=== PATIENT | male | born 1960 | race Caucasian/White ===

== ENCOUNTER 2018-07-28 05:31 | Day surgery (SDC) | payer BC ==
[2018-07-27 10:28] VITALS: BMI 38.1
[2018-07-28] VITALS (13 sets, daily range): BP systolic 100–140; BP diastolic 60–85; PULSE 58–65; RESP 13–20; Ht 167.6 cm; Wt 114.1 kg
[~2018-07-28] VITALS: Ht 167.6 cm; Wt 114.1 kg
[2018-07-28] MEDS ORDERED: LACTATED RINGER'S 1,000 ML IV SCH (06:30)
[2018-07-28] MEDS ORDERED: AMLO-147 PO (07:03)
[2018-07-28] MEDS ORDERED: CARV12.579 PO (07:03)
[2018-07-28] MEDS ORDERED: CLON-379 PO (07:03)
[2018-07-28] MEDS ORDERED: HYDR25TA6 PO (07:04)
[2018-07-28] MEDS ORDERED: HYDR-3672 PO (07:04)
--- NOTE | 2018-07-28 07:11 | PREAC ---
Date/Time of Note Date/Time of Note DATE: 07/28/18 TIME: 07:11 Anesthesia Eval and Record Evaluation Time Pre-Procedure Interview DATE: 07/28/18 TIME: 07:11 Age 58 Sex male NPO: 8 hrs Preoperative diagnosis Lateral meniscus tear, left knee Planned procedure Operative arthroscopy, partial medial and lateral meniscectomy, interosseous bioplasty to the lateral femoral condyle and tibial plateau Past Medical History Past Medical History: Includes Cardio: HTN GI: Morbid obesity Surgery & Anesthesia Issues No known issue Meds Anticoagulation: No Beta David within 24 hr: Yes Reported Medications Hydralazine Hcl* (Hydralazine Hcl*) 50 Mg Tab, 50 MG PO TID, #90 TAB 07/28/18 Hydrochlorothiazide* (Hydrochlorothiazide*) 25 Mg Tab, 25 MG PO DAILY, #30 TAB 07/28/18 Carvedilol* (Carvedilol*) 12.5 Mg Tablet, 12.5 MG PO BID, #60 TAB 07/28/18 Amlodipine Besylate* (Amlodipine Besylate*) 10 Mg Tablet, 10 MG PO DAILY, #30 TAB 07/28/18 Clonidine Hcl* (Clonidine Hcl*) 0.1 Mg Tab, 0.1 MG PO TID PRN for ELEVATED BLOOD PRESSURE, TAB 07/28/18 Current Medications Lactated Ringer's 1,000 ml @ 0 mls/hr Q0M IV Last administered on 07/28/18at 06:43; Admin Dose 25 MLS/HR; Start 07/28/18 at 06:30 Meds reviewed: Yes Allergies Coded Allergies: No Known Allergy (Unverified , 07/28/18) Allergies Reviewed: Yes Labs/Studies Labs Reviewed: Reviewed by anesthesiologist test: N/A Pre-procedure Exam Last vitals Vital Signs Date Temp Pulse Resp B/P (MAP) Pulse Ox O2 O2 Flow FiO2 Time Delivery Rate 07/28/18 97.5 62 18 140/85 94 Room Air 06:31 (103) Airway: Adequate mouth opening Mallampati: Mallampati II Teeth: Normal Lung: Normal Heart: Normal ASA Physical Status ASA physical status: 3 Emergency: None Planned Anesthetic General/MAC: LMA Planned Pain Management Parenteral pain med Pre-operative Attestations Prior to commencing anesthesia and surgery, the patient was re-evaluated, there was verification of: *The patient's identity *The results of appropriate recent lab work and preoperative vital signs *The above evaluation not changing prior to induction *Anesthetic plan, risk benefits, alternative and complications discussed with patient/family; questions answered; patient/family understands, accepts and wishes to proceed. MINE MEADOWS MD Jul 28, 2018 07:11
[2018-07-28] MEDS ORDERED: MEPERIDINE 100 MG INJ ONE (07:31)
[2018-07-28] MEDS ORDERED: PROPOFOL 20 ML ONE (07:31)
[2018-07-28] MEDS ORDERED: CEFAZOLIN 1 GM INJ ONE ×2 (07:31→10:03)
[2018-07-28] MEDS ORDERED: LIDOCAINE 2% (SDV) 5 ML INJ ONE (07:31)
--- NOTE | 2018-07-28 07:45 | HPN ---
Date/Time of Note Date/Time of Note DATE: 07/28/18 TIME: 07:45 Interval H&P Admission Note Pt. seen H&P reviewed: No system changes EVAN RAY MD Jul 28, 2018 07:45
[2018-07-28] MEDS ORDERED: HEPARIN 1000 UNITS/ML 10 ML INJ ONE (07:59)
[2018-07-28] MEDS ORDERED: ROPIVACAINE 0.5 % 30 ML VIAL ONE (07:59)
[2018-07-28] MEDS ORDERED: IOHEXOL 300MG/ML 30 ML BTL ONE (09:03)
[2018-07-28] MEDS ORDERED: ROCURONIUM 50 MG INJ ONE (10:03)
[2018-07-28] MEDS ORDERED: EPHEDrine 25 MG/5 ML SYG ONE (10:04)
[2018-07-28] MEDS ORDERED: ATROPINE 1 MG/10 ML SYRINGE ONE (10:04)
[2018-07-28] MEDS ORDERED: GLYCOPYRROLATE 0.4 MG INJ ONE (10:05)
[2018-07-28] MEDS ORDERED: NEOSTIGMINE 3 MG/3 ML SYRINGE ONE (10:05)
[2018-07-28] MEDS ORDERED: ONDANSETRON 4 MG INJ IV PRN (11:00)
[2018-07-28] MEDS ORDERED: morphine 2 MG INJ IV PRN (11:00)
[2018-07-28] MEDS ORDERED: HYDROmorphONE 1 MG/5 ML IV SYRINGE IV PRN ×3 (11:00)
[2018-07-28] MEDS ORDERED: EPHEDrine 25 MG/5 ML SYG IV PRN (11:00)
[2018-07-28] MEDS ORDERED: MEPERIDINE 25 MG INJ IV PRN (11:00)
[2018-07-28] MEDS ORDERED: LABETALOL HCL 20MG INJ IV PRN (11:00)
[2018-07-28] MEDS ORDERED: hydrALAzine 20 MG INJ IV PRN (11:00)
[2018-07-28] MEDS ORDERED: DIPHENHYDRAMINE 50 MG INJ IV PRN (11:00)
[2018-07-28] MEDS ORDERED: FENTAnyl 50 MCG/ML VIAL IV PRN ×3 (11:00)
[2018-07-28] MEDS ORDERED: MIDAZOLAM 1 MG/ML 2 ML INJ IV PRN (11:00)
[2018-07-28] MEDS ORDERED: METOCLOPRAMIDE 10 MG INJ IV PRN (11:00)
[2018-07-28] MEDS ORDERED: OXYCODONE/ACETAMINOPHEN (5/325) TAB PO PRN ×3 (11:00)
--- NOTE | 2018-07-28 11:27 | PAC ---
Date/Time of Note Date/Time of Note DATE: 07/28/18 TIME: 11:27 Post-Anesthesia Notes Post-Anesthesia Note Last documented vital signs Vital Signs Date Temp Pulse Resp B/P (MAP) Pulse Ox O2 O2 Flow FiO2 Time Delivery Rate 07/28/18 98.0 60 16 122/84 96 Room Air 11:15 (97) Activity: WNL Respiratory function: WNL Cardiovascular function: WNL Mental status: Baseline Pain reasonably controlled: Yes Hydration appropriate: Yes Nausea/Vomiting absent: Yes MINE MEADOWS MD Jul 28, 2018 11:27
--- NOTE | 2018-07-28 12:13 | OPR ---
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 Postoperative Diagnosis Left knee medial and lateral meniscal tear Left knee lateral tibial plateau bone marrow edema lesion with subchondral insufficiency fracture Left knee lateral femoral condyle bone marrow edema lesion with subchondral insufficiency fracture 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 Operation/Procedure Performed Left knee arthroscopy with partial medial and lateral meniscectomy Left knee arthroscopy with chondroplasty of the patellofemoral joint and medial and lateral compartments Left knee interosseous bioplasty/ sub-chondroplasty to the lateral femoral condyle with bone marrow aspirate concentrate Left knee interosseous bioplasty/ sub-chondroplasty to the lateral tibial plateau with bone marrow aspirate concentrate Harvesting of bone marrow aspirate concentrate in the left iliac crest Application of platelet rich plasma to the left knee joint Surgeon Evan Ray MD Drywall Stripper Helper None Anesthesia Type: general, other (Local) Anesthesiologist: MINE MEADOWS MD Tourniquet Time: 59 minutes at 250 mmHg Estimated Blood Loss: minimal Transfusion none Specimen None Grafts/Implants Arthrex allosync pure mixed with Arthrex Omid bone marrow aspirate concentrate Arthrex Omid PRP spun a 2% hematocrit Complications none Pt Condition Post Procedure: stable Disposition: PACU Indications Patient is a 4-year-old male with ongoing pain in his left knee with MRI confirming evidence of a subchondral insufficiency fracture to the lateral femoral condyle and lateral tibial plateau as well as medial and lateral meniscal pathology given his ongoing pain and lack of resolution with nonoperative management patient is indicated for surgery. Risk Note: Patient was explained the risks and benefits of surgery and the patient's [place] language including not limited to infection, bleeding, injury to blood vessels, nerves, ligaments or tendons. Risks of anesthesia, deep vein thrombosis and need for reduce future surgery. Patient acknowledged these risk by signing the surgical consent form. Procedure Description The correct operative site was noted and marked in the preoperative holding area. The patient was then brought back into the operative theater, placed supine on the operative table. Left knee was examined under anesthesia. Range of motion was 0-120. There is no varus or valgus or anterior or posterior instability. There is crepitus noticed at the patellofemoral joint. Patient was then given preoperative antibiotics and then prepped and draped in normal sterile fashion. A timeout was taken and all parties in the room agreed it was the correct patient, correct extremity and correct procedure. Attention was initially directed to the left iliac crest where an incision was made and a Jamshidi was directed to the left iliac crest and 60 cc of bone marrow aspirate was withdrawn. The bone marrow aspirate was then given to the centrifuge for centrifugation. The wound was irrigated and closed with a 5-0 Monocryl followed by Steri-Strips and then 10 cc in rope and half percent was then placed at the site of the incision. Attention was then turned to the left knee and a sterile tourniquet was placed in the left upper thigh. Tourniquet was brought to 250 mmHg Standard anterior lateral portal was created and the knee joint was entered with a blunt tipped trocar, followed by 30 arthroscope. Inflow was achieved with a pump and the pressure maintained at approximately 50 mmHg. A routine arthroscopic surgery was performed. Suprapatella pouch was unremarkable. The undersurface of the patella showed advanced grade 2 chondromalacia The medial and lateral gutters were visualized. There were no loose bodies seen. There is an inflamed hypertrophic plica noted in the anterior and superior medial aspect of the knee. The popliteus hiatus was entered and was normal. Lateral compartment was entered and grade 1 chondromalacia was seen on the lateral tibial plateau and femoral condyle. Scope was then brought into the intercondylar notch and an anteromedial portal was made. Shaver was brought into the knee and small amount of fat pad and scar tissue was initially gently debrided. The anterior cruciate ligament was intact and probed. The knee was brought into a valgus position and the medial compartment was entered. The medial femoral condyle and medial tibial plateau showed evidence of grade I chondromalacia in the medial meniscus showed evidence of the inner rim fraying. Using both a bask et biter and a shaver the medial meniscus was trimmed to a firm and stable rim. The lateral compartment was reentered and the loose chondral debris was debrided with motorized shaver. The lateral femoral condyle showed evidence of grade II chondromalacia and the lateral to plateau showed evidence of grade III chondromalacia. The mid body and anterior horn lateral meniscus with evidence of a tear in the white white and white-red zone and was trimmed to a firm and stable removed with a basket biter and a shaver. It was then reprobed and found to be stable. Attention was then directed back to the patella femoral joint and a chondr oplasty was carried out along the weightbearing aspect of the trochlea and undersurface of the patella to again remove loose debris and maintain functional active articular cartilage. At this point the arthroscope was was removed from the knee. Under fluoroscopy guidance a gym she trocar tip was placed at the lateral femoral condyle and confirmed to be in the proper position on both AP and lateral fluoroscopy at the site of the subchondral insufficiency fracture of the lateral tibial plateau. Using a Jamshidi needle I placed allosync pure mixed with bone marrow aspirate concentrate into the insufficiency fracture. I did the same to the left knee lateral femoral condyle under fluoroscopic guidance with bone marrow aspirate concentrate. I then put the arthroscope back into the knee and confirmed that there was no leakage of any of the material into the knee joint. The knee was then irrigated with additional 2 L of lactated Ringers solution. Excess fluid was then drained. Range of motion was then attempted showing 0- 125 degrees of motion The portal sites were closed with 4-0 Monocryl and Steri-Strips and dressed with Xeroform and triple antibiotic ointment. The knee was then injected with 4 cc of platelet rich plasma that had been spun at 2% hematocrit. I then placed 20 cc of 0.5% plain ropivacaine into the surrounding soft tissue.. A dry sterile dressing was then applied, followed by a compressive bulky soft bandage and an KAITY Wrap and into a T-ROM brace locked in full extension. At the completion of the surgery patient had palpable pulses, soft arms and brisk cap refill. The patient tolerated the procedure well and was taken to the PACU without any complications. All sponge and needle counts were correct. Patient will begin pain medicine and 48 hours of antibiotics as well as aspirin 81 mg for the duration of 4 weeks postoperatively EVAN RAY MD Jul 28, 2018 12:13
== END 2018-07-28 13:12 | disposition home or self-care (01) ==
LOC: SDS 05:31
PROVIDERS: ATTEND Orthopaedic Surgery
DX: M23.242 Derangement of anterior horn of lateral meniscus due to old tear or injury, left knee (principal); M23.204 Derangement of unspecified medial meniscus due to old tear or injury, left knee; M94.261 Chondromalacia, right knee
CPT/HCPCS: 29880; 73562; 82306; J0461; J0690; J1644; J2175; J2405; J2710; J2795; Q9967